=== PATIENT | male | born 1955 | race Caucasian/White ===

== ENCOUNTER → 2018-01-09 | Day surgery (SDC) | payer OTHER ==
[~2018-01-09] MED LIST: FENTANYL CITRATE/PF 100MCG/2 ML INJ ONE; FLONASE; HYOSCYAMINE SULFATE 0.5 MG/ML AMP ONE; LIDOCAINE HCL 2% LOCAL INJ 5 ML SDV VIAL INJ ONE; MIDAZOLAM HCL 2 MG/2 ML VIAL ONE; PROPOFOL IV EMULSION 10 MG/ML 50 ML VIAL ONE
[2018-01-09 08:55] VITALS: BP 130/90
--- NOTE | 2018-01-09 08:55 | Operative Report ---
DATE OF PROCEDURE: January 09, 2018 REFERRING PHYSICIAN: Dr. Joseph Brower PROCEDURE PERFORMED: Colonoscopy. INDICATIONS FOR COLONOSCOPY: Colorectal cancer screening and father with colon cancer. MEDICATION: Patient was done under MAC. Please see anesthesiologist's note. PROCEDURE: With the patient in the left lateral decubitus position, the flexible fiberoptic Olympus colonoscope was inserted into the rectum with ease and advanced all the way to the cecum. It was then withdrawn slowly. Mucosa overlying the cecum appeared to be within normal limits. Scattered diverticular disease was noted in the colon, but it was more prominent in the distal descending and the sigmoid colon. The rectum appeared to be within normal limits. The scope was then retroflexed into the distal rectum and small internal hemorrhoids were noted, none of which was actively bleeding. The scope was then straightened out. It was subsequently withdrawn. Patient tolerated the procedure well. IMPRESSION 1. Diverticulosis. 2. Internal hemorrhoids, none actively bleeding. PLAN: Initiate high-fiber and low-fat diet. Initiate high-fiber supplement. Patient will need a followup colonoscopy in 5 years. Job#: [id number] RI cc:MAO BROWER DO
== END | disposition home or self-care (01) ==
LOC: OR 05:47
PROVIDERS: ATTEND Internal Medicine Gastroenterology
DX: Z12.11 Encounter for screening for malignant neoplasm of colon (principal); K57.30 Diverticulosis of large intestine without perforation or abscess without bleeding; K64.8 Other hemorrhoids; I45.10 Unspecified right bundle-branch block; R03.0 Elevated blood-pressure reading, without diagnosis of hypertension; Z01.810 Encounter for preprocedural cardiovascular examination; Z68.27 Body mass index [BMI] 27.0-27.9, adult; Z86.19 Personal history of other infectious and parasitic diseases; Z80.0 Family history of malignant neoplasm of digestive organs
CPT/HCPCS: 45378; 93005; J1980; J2001; J2250

== ENCOUNTER → 2018-07-17 | Day surgery (SDC) | payer OTHER ==
[2018-07-14 10:29] LABS: BASOPHILS % 0.6 % (0.0-1.0); EOSINOPHILS # (AUTO) 0.2 (0.0-0.4); EOSINOPHILS % 2.3 % (0.0-6.0); HEMATOCRIT 43.8 % (38.2-49.6); HEMOGLOBIN 15.2 g/dL (14.0-18.0); LYMPHOCYTES # (AUTO) 1.2 (1.0-3.2); MEAN CORPUSCULAR HEMOGLOBIN 32.6 pg (28-32); MEAN CORPUSCULAR HGB CONC 34.7 g/dL (31-35); MONOCYTES # (AUTO) 0.5 (0.2-0.8); MONOCYTES % 7.5 % (4.4-11.3); NEUTROPHILS # (AUTO) 4.9 (2.1-6.9); NEUTROPHILS % 71.6 % (38.7-80.0); PLATELET COUNT 179 x10e3/uL (140-360); RED BLOOD COUNT 4.66 x10e6/uL (4.3-5.7); RED CELL DISTRIBUTION WIDTH 12.3 % (11.7-14.4)
[2018-07-14 10:44] LABS: ALANINE AMINOTRANSFERASE 27 IU/L (0-55); ALBUMIN/GLOBULIN RATIO 1.4 (0.8-2.0); ALKALINE PHOSPHATASE 54 IU/L (40-150); ANION GAP 11.2 mmol/L (8-16); BLOOD UREA NITROGEN 17 mg/dL (7-26); BUN/CREATININE RATIO 17 (6-25); CALCIUM 9.5 mg/dL (8.4-10.2); CARBON DIOXIDE 25 mmol/L (22-29); CHLORIDE 104 mmol/L (98-107); EST GLOMERULAR FILTRATION RATE > 60 ML/MIN (60-); GLUCOSE 113 mg/dL (74-118); POTASSIUM 4.2 mmol/L (3.5-5.1); SODIUM 136 mmol/L (136-145)
--- NOTE | 2018-07-14 11:45 | Diagnostic Imaging Report ---
EXAM: CHEST 2 VIEWS, PA and lateral DATE: 07/14/2018 Time stamp on exam: 10:18 AM INDICATION: Preoperative COMPARISON: None FINDINGS: LINES/TUBES: None LUNGS: No consolidations or edema. PLEURA: No effusions or pneumothorax. HEART AND MEDIASTINUM: Normal size and contour. BONES AND SOFT TISSUES: No acute findings. IMPRESSION: No acute thoracic abnormality. Signed by: Dr. Greg Mariano DO on 07/14/2018 11:42 AM
[~2018-07-17] MED LIST changes: +BELLADONNA/OPIUM 30 MG SUPP RC ONE; +CEFAZOLIN SOD 1 GM/NS 50ML 100 ML IV ONE; +CIALIS2.5 MG; +DEXAMETHASONE SOD PHOS INJ 4 MG/ML VIAL ONE; -HYOSCYAMINE SULFATE 0.5 MG/ML AMP ONE; +OMEPRAZOLE40 MG; +ONDANSETRON HCL INJ 2MG/ML 2ML 2 MG/ML VIAL ONE; +PHENYLEPHRINE HCL 1% 10 MG/ML VIAL ONE; +PROPOFOL IV EMULSION 10 MG/ML 20 ML VIAL ONE; -PROPOFOL IV EMULSION 10 MG/ML 50 ML VIAL ONE; +SEVOFLURANE INHAL SOLN 250 ML PEN BTL ONE
--- OUTSIDE RECORDS SUMMARY | 2018-07-17 05:11 | XMS REPORT ---
Author [facility] Address Unknown Phone Unavailable Care Team Providers Care Requirements Engineer Name Role Phone AMI GARZA Unavailable Unavailable Payers Payer Name Policy Type Policy Number Effective Date Expiration Date Problems This patient has no known problems. Allergies, Adverse Reactions, Alerts Allergy Name Allergy Type Status Severity Reaction(s) Onset Date Inactive Date Treating Clinician Comments No Known Allergies DA Active U 2018-03-03 00:00:00 Medications This patient has no known medications. Results Test Description Test Time Test Comments Text Results Atomic Results Result Comments CHEST 2 VIEWS 2018-07-14 11:40:00 [place] [id number] Patient Name: PEDRITO ABDALLA MR #: [id number] : 1955 Age/Sex: 63/M Req #: [id number] Adm Physician: Ordered by: AMI GARZA MD Report #: [id number] Location: OR Room/Bed: Procedure: [id number] DX/CHEST 2 VIEWS Exam Date: 07/14/18 Exam Time: 1010 REPORT STATUS: Signed EXAM: CHEST 2 VIEWS, PA and lateral DATE: 07/14/[address] amp on exam: 10:18 AM INDICATION: Preoperative COMPARISON: None FINDINGS: LINES/TUBES: None LUNGS: No consolidations or edema. PLEURA: No effusions or pneumothorax. HEART AND MEDIASTINUM: Normal size and contour. BONES AND SOFT TISSUES: No acute findings. IMPRESSION: No acute thoracic abnormality. Signed by: Dr. Francisca Mariano DO on 07/14/2018 11:42 AM Dictated By: FRANCISCA MARIANO DO 1142 Transcribed By: SIRISHA on 07/14/18 1142 COPY TO: AMI GARZA MD
[2018-07-17 09:10] VITALS: BP 127/80
--- NOTE | 2018-07-17 19:12 | Operative Report ---
DATE OF PROCEDURE: 07/17/2018 SURGEON: Francisco Javier Saucedo MD PREOPERATIVE DIAGNOSES: Benign prostatic hypertrophy, bladder cancer. POSTOPERATIVE DIAGNOSES: Benign prostatic hypertrophy, bladder cancer remission. OPERATION PERFORMED: Cystoscopy and implantation of UroLift implants on prostatic urethra. ANESTHESIOLOGIST: Staff. ANESTHESIA: General. HISTORY: This is a 63-year-old male, who comes to the office with difficulties urinating. 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 He has had followup with multiple bladder biopsies, all negative, and at the present time with benign prostatic hypertrophy and urinary symptoms. The patient and I discussed his treatment options and after discussing all the complications and side effects of all the procedures including medications, the patient decided to undergo UroLift implantation. PROCEDURE IN DETAIL: With the patient under satisfactory general anesthesia, the patient was placed in a supine position on the operating table. Legs were placed in stirrups. Genitalia was then prepped with Betadine soap and solution and draped in usual manner. A #22-Guyanese cystourethroscope was passed per urethra into the bladder and inspection was performed using the 12 degrees angle lens. At this point and after ascertaining the bilobar hyperplasia since the patient did not have any intravesical component, the cystoscope was removed and replaced with 20-Guyanese 0 degree lens cystoscope. At this point, the UroLift delivery device was introduced and angled to the 10 o'clock position on the right side and compression of the lateral lobe at this area, 1.5 cm distal to the bladder neck. The was pulled deploying the needle. The needle was then retracted allowing one of the implants to be delivered to the capsular surface of the prostate. At this point, the implant was then tensioned to assure capsular seeding and removal of slack monofilament. The device was then angled back toward the midline and slowly advanced until the cystoscopic verification of the monofilament being centered in the delivery bay. At this point, excess filament was severed. The delivery device was then readvanced into the bladder. The delivery device was then replaced with cystoscope on bridge and the implantation location and open defect was confirmed cystoscopically. The same procedure was then repeated on the left side, this time more proximal, more distal from the bladder neck, more proximal to the area around the verumontanum and an additional implant was delivered on the left side. On the right side, the delivery was done identically to the left side. Again, the cystoscope was replaced to make sure that there was a good location of the implants and that no further implants were needed. Evidence of some bleeding was seen. Irrigation was done. There has been some bleeding. My decision was to placing a Miller catheter to help control the bleeding of the prostatic fossa. A #18 Miller catheter was placed in without any difficulty. This was left to drainage. B and O suppository was placed in the rectum as well, and the patient was taken to the recovery room in satisfactory condition. DISCHARGE INSTRUCTIONS: The patient was sent home with this catheter after I irrigated the catheter twice and obtained small blood clots. I discussed with the and the patient that if there were any problems with urinary retention or not draining properly out of the Miller to call me and to come see me in the office this afternoon. Otherwise, he will be coming in in the morning, 08:30 a.m., to remove the Miller catheter. After that, we will follow the patient with a voiding flow in the next 2 to 3 weeks and with another repeat ultrasound of the prostate. The patient was told to continue his medications, stop the aspirin for a week. He was instructed to ambulate, but not to do any strenuous activity. MD SYLVESTER Spicer/MODL /[id number]
== END | disposition home or self-care (01) ==
LOC: OR 05:09
PROVIDERS: ATTEND Urology
DX: N40.1 Benign prostatic hyperplasia with lower urinary tract symptoms (principal); C67.2 Malignant neoplasm of lateral wall of bladder; R39.14 Feeling of incomplete bladder emptying; R39.15 Urgency of urination; R39.12 Poor urinary stream; G47.33 Obstructive sleep apnea (adult) (pediatric); J32.9 Chronic sinusitis, unspecified; F41.9 Anxiety disorder, unspecified; B15.9 Hepatitis A without hepatic coma; Z01.810 Encounter for preprocedural cardiovascular examination; Z01.812 Encounter for preprocedural laboratory examination; Z01.818 Encounter for other preprocedural examination
CPT/HCPCS: 36415; 71046; 80053; 85025; 87086; 93005; C9740; J0690; J1100; J2001; J2250; J2370; J2405; J2704; L8699

== ENCOUNTER → 2018-12-22 | Day surgery (SDC) | payer OTHER ==
[2018-12-16 10:47] LABS: BASOPHILS % 0.6 % (0.0-1.0); EOSINOPHILS # (AUTO) 0.6 (0.0-0.4); EOSINOPHILS % 8.2 % (0.0-6.0); HEMATOCRIT 42.8 % (38.2-49.6); HEMOGLOBIN 14.9 g/dL (14.0-18.0); LYMPHOCYTES # (AUTO) 1.3 (1.0-3.2); LYMPHOCYTES % 19.2 % (18.0-39.1); MEAN CORPUSCULAR HEMOGLOBIN 32.3 pg (28-32); MEAN CORPUSCULAR HGB CONC 34.8 g/dL (31-35); MEAN CORPUSCULAR VOLUME 92.6 fL (81-99); MONOCYTES # (AUTO) 0.6 (0.2-0.8); MONOCYTES % 8.1 % (4.4-11.3); NEUTROPHILS # (AUTO) 4.4 (2.1-6.9); PLATELET COUNT 175 x10e3/uL (140-360); RED BLOOD COUNT 4.62 x10e6/uL (4.3-5.7); RED CELL DISTRIBUTION WIDTH 12.4 % (11.7-14.4)
[2018-12-16 11:06] LABS: ANION GAP 14.9 mmol/L (8-16); BLOOD UREA NITROGEN 23 mg/dL (7-26); BUN/CREATININE RATIO 27 (6-25); CALCIUM 9.5 mg/dL (8.4-10.2); CARBON DIOXIDE 20 mmol/L (22-29); CHLORIDE 106 mmol/L (98-107); CREATININE, SERUM 0.84 mg/dL (0.72-1.25); EST GLOMERULAR FILTRATION RATE > 60 ML/MIN (60-); GLUCOSE 128 mg/dL (74-118); POTASSIUM 3.9 mmol/L (3.5-5.1); SODIUM 137 mmol/L (136-145)
--- NOTE | 2018-12-16 12:01 | Diagnostic Imaging Report ---
EXAMINATION: CHEST 2 VIEWS INDICATION: Pre-operative COMPARISON: Chest radiograph 07/14/2018 FINDINGS: LINES/TUBES:None LUNGS:The lungs are well-inflated. No focal consolidation or pulmonary edema. PLEURA:No pleural effusion or pneumothorax. MEDIASTINUM:The cardiomediastinal silhouette appears normal in size and shape. BONES/SOFT TISSUES:No acute osseous injury. ABDOMEN:No free air under the diaphragm. IMPRESSION: No focal pneumonia or pulmonary edema. Signed by: Frank Valladares MD on 12/16/2018 11:58 AM
[~2018-12-22] MED LIST changes: +ACETAMINOPHEN 1000 MG/100 ML 100 ML IV ONE; -BELLADONNA/OPIUM 30 MG SUPP RC ONE; +BUPIVACAINE 0.25%/EPI 30ML SDV INJ ONE; -CEFAZOLIN SOD 1 GM/NS 50ML 100 ML IV ONE; +FAMOTIDINE 20 MG/2 ML VIAL IV ONE; +HYDROCODONE/APAP 7.5MG-325MG 1 EA TAB ONE; +LIDOCAINE HCL 1% 30ML-PF VIAL ONE; -PHENYLEPHRINE HCL 1% 10 MG/ML VIAL ONE; +SCOPOLAMINE 1.5 MG PATCH ONE; +VIAGRA50 MG PO
[2018-12-22 11:20] VITALS: BP 131/85
--- NOTE | 2018-12-22 11:37 | Operative Report ---
DATE OF PROCEDURE: 12/22/2018 SURGEON: Antony Lazar MD PREOPERATIVE DIAGNOSIS: Left inguinal hernia. POSTOPERATIVE DIAGNOSIS: Left inguinal hernia. OPERATION PERFORMED: Repair left inguinal hernia with extended Prolene hernia system. ANESTHESIA: General. COMPLICATIONS: None. ESTIMATED BLOOD LOSS: Minimal. DESCRIPTION OF PROCEDURE: With the patient lying in bed in the supine position under good general anesthesia, the abdomen was prepped with Betadine solution and draped in the usual manner. A left inguinal incision was made, it was carried down through the subcutaneous tissue down to the external oblique aponeurosis. External oblique was opened along the length of its fibers and the external inguinal ring was opened. The cord was then mobilized and retracted. Exploration of the cord revealed the presence of a lipoma of the cord, which was from the cord structures, ligated with 2-0 Vicryl and divided. Also, contained within the cord, was an indirect hernia sac, which was a pantaloon type of hernia with also a large direct defect. The direct defect was then imbricated with a pursestring suture of 0 Ethibond and the indirect sac was then slowly and carefully from all the structures and reduced back to the intraabdominal cavity. After this was done, the preperitoneal space was then entered and a pocket was created without any difficulty. An extended Prolene hernia system was then placed in the preperitoneal space and the underlay patch was deployed without any problems. The overlay patch was then placed over the floor and split inferolaterally to allow for passage of the cord. The mesh was then sutured to the conjoined tendon and the inguinal ligament using interrupted sutures of 2-0 Vicryl. All layers were infiltrated with 0.25% Marcaine and 1% lidocaine mixed in equal parts. The external oblique aponeurosis was then closed with a running suture of 2-0 Vicryl. The subcutaneous tissue was approximated with 3-0 plain and the skin was closed with clips. A dressing was applied. The sponge, lap, and needle counts were correct. The patient tolerated the procedure well and returned to the recovery room in stable condition. Antony Lazar MD JLR/MODL /[id number]
== END | disposition home or self-care (01) ==
LOC: OR 06:00
PROVIDERS: ATTEND Surgery
DX: K40.90 Unilateral inguinal hernia, without obstruction or gangrene, not specified as recurrent (principal); D17.6 Benign lipomatous neoplasm of spermatic cord; C67.9 Malignant neoplasm of bladder, unspecified; B15.9 Hepatitis A without hepatic coma; Z01.810 Encounter for preprocedural cardiovascular examination; Z01.812 Encounter for preprocedural laboratory examination; Z01.818 Encounter for other preprocedural examination
CPT/HCPCS: 36415; 49505; 71046; 80048; 85025; 93005; C1781; J0131; J1100; J2001 ×2; J2250; J2405; J2704; J3010